=== PATIENT | female | born 1940 | race Two or more races ===

== ENCOUNTER 2016-09-27 08:57 | Day surgery (SDC) | payer BC ==
[~2016-09-27] VITALS: Ht 147.3 cm; Wt 57.0 kg
[~2016-09-27 08:57] MED LIST: ASPI-805 PO; CARV25TA79 PO; DOCU-144 PO; FOLI1CAP4 PO; ISOS30TA5 PO; LANT3I SC; LOSA50TA6 PO; SEVE800T7 PO; SIMV40TA3 PO
[2016-09-27] MEDS ORDERED: SIMV10TA PO (09:35)
[2016-09-27] MEDS ORDERED: CARV25TA79 PO (09:36)
[2016-09-27] MEDS ORDERED: BASAGLAR KWIK PEN PO (09:38)
[2016-09-27] MEDS ORDERED: LANT3I SC (09:39)
[2016-09-27] MEDS ORDERED: FOLI1CAP4 PO (09:39)
[2016-09-27] MEDS ORDERED: DOCU-144 PO (09:40)
[2016-09-27 10:24] VITALS: Ht 147.3 cm; Wt 57.0 kg
[2016-09-27 10:25] VITALS: BP 144/67; PULSE 72; RESP 19
[2016-09-27 11:11] VITALS: BP 142/75; PULSE 56; RESP 16
[2016-09-27] MEDS ORDERED: HEPARIN 1000 UNITS/ML 10 ML INJ ONE (11:43)
[2016-09-27] MEDS ORDERED: HEPARIN 1000 UNITS/NS (A-LINE) 1,000 ML ONE (11:48)
[2016-09-27] MEDS ORDERED: IODIXANOL LOCM 100 ML BTL ONE (11:48)
[2016-09-27] MEDS ORDERED: SOD CHLORIDE 0.9% 500 ML ONE (11:48)
--- NOTE | 2016-09-27 12:13 | OPR ---
Date/Time of Note Date/Time of Note DATE: 09/27/16 TIME: 12:10 Operative Report Procedure Date: Sep 27, 2016 Preoperative Diagnosis Dysfunctional right upper extremity AV fistula Postoperative Diagnosis Same Operation Performed Right upper extremity AV fistulogram Angioplasty superior vena cava 12 x 40 mm balloon Angioplasty right subclavian vein 12 x 40 mm balloon Central venous Interpositions version of the angioplasty Interpretation supervision of the superior venacavogram Fluoroscopy Surgeon: APOLINAR KANG MD Anesthesia Type: MAC Estimated Blood Loss: minimal Transfusion Required: no Specimen: none Grafts/Implants: none Grafts/Implants None Tubes/Drains None Complications: no Pt Condition Post Procedure: stable Indications Dysfunctional right upper extremity AV fistula Operative\Procedure Findings Dictated Procedure Description Patient was placed in supine position prepped and draped in usual sterile fashion 1% lidocaine was used throughout the operation for local anesthesia Timeout was called Access was gained the right arm AV fistula Introducer needle was advanced without any difficulty Micropuncture system was used to enter the vein A venogram was done Interpositions version of the fistulogram revealed the fistula was patent up into a axillary vein which was large about a centimeter but patent subclavian vein at its junction with the superior vena cava had an 80% stenosis 035 guidewire was exchanged to an Amplatz guidewire all the way down into the inferior vena cava over a catheter Patient was given 3000 units of IV heparin Superior vena cava and the subclavian vein were angioplastied using a 12 x 40 mm balloon up to 6 6 atmospheric of pressure for 1 minute The final venogram reveals less than 20% stenosis in this area All the hardware was removed and entrance white site was closed using a single 3 -0 Vicryl suture in interrupted fashion patient tolerated procedure well end of dictation APOLINAR KANG MD Sep 27, 2016 12:13
[2016-09-27 12:30] VITALS: BP 148/67; PULSE 73; RESP 16
== END 2016-09-27 12:48 | disposition home or self-care (01) ==
LOC: SDS 08:57
PROVIDERS: ATTEND Thoracic Surgery (Cardiothoracic Vascular Surgery)
DX: T82.898A Other specified complication of vascular prosthetic devices, implants and grafts, initial encounter (principal); Y84.8 Other medical procedures as the cause of abnormal reaction of the patient, or of later complication, without mention of misadventure at the time of the procedure; Y92.89 Other specified places as the place of occurrence of the external cause; I12.0 Hypertensive chronic kidney disease with stage 5 chronic kidney disease or end stage renal disease; N18.6 End stage renal disease; E11.9 Type 2 diabetes mellitus without complications
CPT/HCPCS: 36901; 37248; 82962; 84132; C1725; C1769; C1887; C1894; J1644; J7040; Q9967; Z7610